=== PATIENT | female | born 1990 | race Caucasian/White ===

== ENCOUNTER 2018-07-12 07:05 | Emergency (ER) | payer OTHER ==
[2018-07-12 07:16] VITALS: BP 131/63
--- NOTE | 2018-07-12 07:34 | UC ---
Abdominal Pain Female HPI - HPI Summary HPI Summary: abdominal pain / cramping x 4 days cramping pain , 4 out of 10 , pain is constant, no radiation worse with eating , some improvements when npo and after BM + nausea , no vomiting , + diarrhea, no fever, + chills - History of Current Complaint Chief Complaint: UCGI Stated Complaint: NAUSEA,DIARRHEA,VOMITING Time Seen by Provider: 07/12/18 07:22 Hx Obtained From: Patient Hx Last Menstrual Period: 06/24/18 ?: No Onset/Duration: Gradual Onset, Lasting Days - 4, Still Present Timing: Constant Severity Initially: Moderate Severity Currently: Moderate Pain Intensity: 4 Location: Diffuse Radiates: No Character: Cramping Aggravating Factor(s): Food Alleviating Factor(s): Bowel Movement, NPO Associated Signs and Symptoms: Positive: Decreased Appetite, Nausea, Diarrhea. Negative: Fever, Back Pain, Constipation, Urinary Symptoms, Vaginal Bleeding, Vaginal Discharge, Vomiting Allergies/Adverse Reactions: Allergies Allergy/AdvReac Type Severity Reaction Status Date / Time ciprofloxacin [From Cipro] Allergy Diarrhea Verified 05/09/18 10:00 erythromycin base Allergy See Comment Verified 05/09/18 09:59 Home Medications: Home Medications Colesevelam HCl [Welchol] 625 mg PO BID 07/12/18 [History Confirmed 07/12/18] Dicyclomine CAP* [Bentyl CAP*] 20 mg PO DAILY 07/12/18 [History Confirmed ] Levothyroxine TAB* [Synthroid 25 MCG TAB*] 25 mcg PO DAILY 07/12/18 [History Confirmed 07/12/18] Loperamide CAP* [Imodium CAP*] 2 mg PO ONCE 07/12/18 [History Confirmed 07/12/18 ] Pantoprazole TAB (NF) [Protonix TAB (NF)] 20 mg PO DAILY 07/12/18 [History Confirmed 07/12/18] PMH/Surg Hx/FS Hx/Imm Hx - Additional Past Medical History Additional PMH: GASTROPARESIS GERD GI/ History: Gastroesophageal Reflux - Surgical History Surgical History: Yes Surgery Procedure, Year, and Place: cholecystectomy - Family History Known Family History: Negative: Diabetes - Social History Alcohol Use: None Substance Use Type: None Smoking Status (MU): Never Smoked Tobacco Review of Systems Constitutional: Negative Skin: Negative Eyes: Negative ENT: Negative Respiratory: Negative Cardiovascular: Negative Gastrointestinal: Abdominal Pain, Diarrhea, Nausea Genitourinary: Negative Motor: Negative Is Patient Immunocompromised?: No All Other Systems Reviewed And Are Negative: Yes Physical Exam Triage Information Reviewed: Yes Appearance: Well-Appearing, No Pain Distress Vital Signs: Initial Vital Signs Temp 98.7 F 07/12/18 07:11 Pulse 105 07/12/18 07:11 Resp 16 07/12/18 07:11 BP 131/63 07/12/18 07:11 Pulse Ox 100 07/12/18 07:11 Vital Signs Reviewed: Yes Eyes: Positive: Conjunctiva Clear ENT: Positive: Normal ENT inspection, Hearing grossly normal, Pharynx normal Neck: Positive: Supple, Nontender, No Lymphadenopathy Respiratory: Positive: Chest non-tender, Lungs clear, Normal breath sounds Cardiovascular: Positive: RRR, No Murmur, Pulses Normal Abdominal Exam: Normal Abdomen Description: Positive: Nontender, Soft Bowel Sounds: Positive: Present Musculoskeletal Exam: Normal Musculoskeletal: Positive: Strength Intact Psychological Exam: Normal Abd Pain Female Course/Dx - Differential Dx/Diagnosis Provider Diagnoses: gastroenteritis Discharge - Sign-Out/Discharge Documenting (check all that apply): Patient Departure All imaging exams completed and their final reports reviewed: No Studies - Discharge Plan Condition: Stable Disposition: HOME Prescriptions: Ondansetron [Zofran Odt] 8 mg PO Q8H PRN #9 tab PRN Reason: Nausea/Vomiting Patient Education Materials: Gastroenteritis (DC) Forms: *Work Release Referrals: Daniel Lynn MD [Primary Care Provider] - If Needed - Billing Disposition and Condition Condition: STABLE Disposition: Home
== END 2018-07-12 07:35 | disposition home or self-care (01) ==
LOC: UCCORT 07:05
DX: K52.9 Noninfective gastroenteritis and colitis, unspecified (principal); K21.9 Gastro-esophageal reflux disease without esophagitis; Z88.1 Allergy status to other antibiotic agents; Z79.899 Other long term (current) drug therapy
CPT/HCPCS: 99212; G0463

== ENCOUNTER 2018-08-18 16:30 | Emergency (ER) | payer OTHER ==
[2018-08-18 16:52] VITALS: BP 124/76
--- NOTE | 2018-08-18 17:23 | ED ---
Throat Pain/Nasal Congestion - HPI Summary HPI Summary: 27 yr old female with the complaint of sore throat and right ear pain. Onset of symptoms about a week ago with runny nose, nasal congestion, voice hoarse. The patient got better over last weekend, and then on Wednesday began to get sore throat and right ear pain that got progressively worse. Pain is 6/10. She has no drooling. She has no voice hoarseness now. No other complaints. - History of Current Complaint Chief Complaint: UCGeneralIllness Time Seen by Provider: 08/18/18 17:04 - Allergies/Home Medications Allergies/Adverse Reactions: Allergies Allergy/AdvReac Type Severity Reaction Status Date / Time ciprofloxacin [From Cipro] Allergy Diarrhea Verified 08/18/18 16:48 erythromycin base Allergy See Comment Verified 08/18/18 16:48 Home Medications: Home Medications Ibuprofen TAB* [Motrin TAB* 600 MG] 600 mg PO Q6H PRN 08/18/18 [History Confirmed 08/18/18] Norgestrel-Ethinyl Estradiol [[id number] Tablet] 1 each PO DAILY 08/18/18 [ History Confirmed 08/18/18] PMH/Surg Hx/FS Hx/Imm Hx Endocrine/Hematology History: Reports: Hx Thyroid Disease Denies: Hx Diabetes Cardiovascular History: Denies: Hx Hypertension History: Denies: Hx Dialysis, Hx Renal Disease - Surgical History Surgery Procedure, Year, and Place: cholecystectomy Infectious Disease History: No Infectious Disease History: Denies: Traveled Outside the [place] in Last 30 Days - Family History Known Family History: Negative: Diabetes - Social History Occupation: Employed Full-time Alcohol Use: None Substance Use Type: Reports: None Smoking Status (MU): Never Smoked Tobacco Review of Systems Constitutional: Negative Positive: Ear Ache, Nasal Discharge, Other - sore throat All Other Systems Reviewed And Are Negative: Yes Physical Exam Triage Information Reviewed: Yes Vital Signs On Initial Exam: Initial Vitals Temp Pulse Resp BP Pulse Ox 98.7 F 90 15 124/76 100 08/18/18 16:48 08/18/18 16:48 08/18/18 16:48 08/18/18 16:48 08/18/18 16:48 Vital Signs Reviewed: Yes Appearance: Positive: Well-Appearing, No Pain Distress Skin: Positive: Warm, Skin Color Reflects Adequate Perfusion Head/Face: Positive: Normal Head/Face Inspection Eyes: Positive: EOMI ENT: Positive: Pharyngeal erythema, TM red - right with effusion Neck: Positive: Nontender Respiratory/Lung Sounds: Positive: Clear to Auscultation, Breath Sounds Present Cardiovascular: Positive: RRR. Negative: Murmur Abdomen Description: Negative: Distended Musculoskeletal: Positive: Strength/ROM Intact Neurological: Positive: Sensory/Motor Intact, Alert, Oriented to Person Place, Time, CN Intact II-III, Normal Gait, Speech Normal Psychiatric: Positive: Normal - Jonah Coma Scale Best Eye Response: 4 - Spontaneous Best Motor Response: 6 - Obeys Commands Best Verbal Response: 5 - Oriented Coma Scale Total: 15 Diagnostics - Vital Signs Vital Signs Temp Pulse Resp BP Pulse Ox 08/18/18 16:48 98.7 F 90 15 124/76 100 - Laboratory Lab Results: Lab Results 08/18/18 Range/Units 16:55 Group A Strep Rapid Negative (Negative) Lab Statement: Any lab studies that have been ordered have been reviewed, and results considered in the medical decision making process. EENT Course/Dx - Course Course Of Treatment: 27 yr old female with negative rapid strep. Positive right OM. Rx with Amox. - Diagnoses Provider Diagnoses: Otitis media Discharge - Sign-Out/Discharge Documenting (check all that apply): Patient Departure All imaging exams completed and their final reports reviewed: No Studies - Discharge Plan Condition: Good Disposition: HOME Prescriptions: Amoxicillin PO (*) [Amoxicillin 500 MG CAP*] 500 mg PO TID #30 cap Patient Education Materials: Ear Infection (ED) Referrals: Daniel Lynn MD [Primary Care Provider] - 2 Days - Billing Disposition and Condition Condition: GOOD Disposition: Home
== END 2018-08-18 17:28 | disposition home or self-care (01) ==
LOC: UCCORT 16:30
DX: H66.91 Otitis media, unspecified, right ear (principal); Z88.1 Allergy status to other antibiotic agents
CPT/HCPCS: 87651; 99212; G0463

== ENCOUNTER 2019-04-11 18:27 | Emergency (ER) | payer OTHER ==
[2019-04-11 18:47] VITALS: BP 131/80
--- NOTE | 2019-04-11 19:08 | UC ---
Complaint Female HPI - HPI Summary HPI Summary: 28-year-old female who is here because she think she has urinary tract infection. She does have a history of irritable bowel syndrome and on any given day can have numerous bouts of diarrhea. Over the past few days she has had increased diarrhea, 4 times this morning which she states is normal for her. She does have some scattered abdominal pain which again she states is normal for her IBS. She's had some urinary frequency but no burning today. She denies any abnormal vaginal discharge. She states when she urinates, after she is finished, she feels like she has to urinate more. She took Azo today without relief. No fever or chills and no vomiting. She does have frequent nausea which is part of the IBS and she takes Zofran for that. - History Of Current Complaint Chief Complaint: UCGU Stated Complaint: URINARY Time Seen by Provider: 04/11/19 18:32 Hx Obtained From: Patient Hx Last Menstrual Period: 04/01/19 ?: No Onset/Duration: Gradual Onset Timing: Intermittent Severity Initially: Mild Severity Currently: Mild Pain Intensity: 3 Character: Cramping Aggravating Factor(s): Urination Alleviating Factor(s): Nothing Associated Signs And Symptoms: Positive: Nausea. Negative: Back Pain, Vaginal Bleeding/Discharge, Vaginal Discharge - Allergies/Home Medications Allergies/Adverse Reactions: Allergies Allergy/AdvReac Type Severity Reaction Status Date / Time ciprofloxacin [From Cipro] Allergy Diarrhea Verified 04/11/19 18:38 erythromycin base Allergy See Comment Verified 04/11/19 18:38 Home Medications: Home Medications Dicyclomine CAP* [Bentyl CAP*] 1 tab QID PRN 04/11/19 [History Confirmed ] Ondansetron TAB* [Zofran 4 MG Tab*] 1 tab Q6HR PRN 04/11/19 [History Confirmed 04/11/19] PMH/Surg Hx/FS Hx/Imm Hx Previously Healthy: Yes Endocrine History: Thyroid Disease GI/ History: Gastroesophageal Reflux, Other - Irritable bowel syndrome. - Surgical History Surgical History: Yes Surgery Procedure, Year, and Place: cholecystectomy - Family History Known Family History: Negative: Diabetes - Social History Alcohol Use: None Substance Use Type: None Smoking Status (MU): Never Smoked Tobacco Review of Systems All Other Systems Reviewed And Are Negative: Yes Gastrointestinal: Positive: Diarrhea - Diarrhea 4 times this morning which is consistent with her irritable bowel syndrome., Nausea - Nausea is intermittent and yesterday she had to take for Zofran for nausea but she states this is normal with her IBS as well. He denies any blood in her stool. Genitourinary: Positive: Frequency, Urgency Is Patient Immunocompromised?: No Physical Exam Triage Information Reviewed: Yes Appearance: Well-Appearing, No Pain Distress, Well-Nourished Vital Signs: Initial Vital Signs Temp 98.4 F 04/11/19 18:40 Pulse 83 04/11/19 18:40 Resp 16 04/11/19 18:40 BP 131/80 04/11/19 18:40 Pulse Ox 100 04/11/19 18:40 Vital Signs Reviewed: Yes Neck: Positive: Supple, Nontender, No Lymphadenopathy Respiratory: Positive: Lungs clear, Normal breath sounds, No respiratory distress, No accessory muscle use Cardiovascular: Positive: RRR, No Murmur, Pulses Normal, Brisk Capillary Refill Abdomen Description: Positive: Nontender - No specific area of tenderness. She is not tender in the right lower quadrant. She has scattered abdominal discomfort but no guarding, distention, rigidity or rebound., No Organomegaly, Soft. Negative: CVA Tenderness (R), CVA Tenderness (L), Distended, Guarding, Hepatomegaly, McBurney's Point Tenderness, Splenomegaly Bowel Sounds: Positive: Present Musculoskeletal Exam: Normal Neurological Exam: Normal Psychological Exam: Normal Skin Exam: Normal Complaint Female Dx - Course Course Of Treatment: We are unable to do the urinalysis here because the patient has taken Azo which is discolored the urine. I am sending it for urine culture. Everything with her abdominal pain and discomfort and gastrointestinal symptoms are consistent with her irritable bowel syndrome according to the patient. Because she's had some urinary symptoms where she feels like she has to urinate and then feels like she needs to urinate more while she still sitting on the toilet I am going to start her on Bactrim DS one tab by mouth twice a day 5 days pending urine culture. If the urine culture is negative she can stop the Bactrim. If her abdominal pain worsens she is to go to the emergency room for further evaluation. 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 - Differential Dx/Diagnosis Provider Diagnosis: UTI (urinary tract infection) Discharge - Sign-Out/Discharge Documenting (check all that apply): Patient Departure All imaging exams completed and their final reports reviewed: No Studies - Discharge Plan Condition: Fair Disposition: HOME Prescriptions: Sulfamethox/Trimethoprim DS* [Bactrim DS 800/160 TAB*] 1 tab PO BID 5 Days #10 tab Patient Education Materials: Urinary Tract Infection in Women (DC) Forms: *Work Release Referrals: Daniel Lynn MD [Primary Care Provider] - Additional Instructions: Increase fluids, we will call you with the culture report. Follow-up in the emergency room for any worsening symptoms, worsening abdominal pain, fever or chills. - Billing Disposition and Condition Condition: FAIR Disposition: Home
== END 2019-04-11 19:15 | disposition home or self-care (01) ==
LOC: UCCORT 18:27
DX: N39.0 Urinary tract infection, site not specified (principal); Z88.1 Allergy status to other antibiotic agents
CPT/HCPCS: 87086; 99212; G0463